=== PATIENT | female | born 1940 | race Caucasian/White ===

== ENCOUNTER 2023-03-01 19:47 | Observation (INO) | payer MEDICARE ==
[2023-03-01] MEDS ORDERED: Senokot S 8.6-50 MG TAB PO PRN (21:36)
[2023-03-01] MEDS ORDERED: Calcium Carbonate 500 MG ChewTAB PO PRN (21:36)
[2023-03-01] MEDS ORDERED: Acetaminophen 325 MG TAB PO PRN (21:36)
[2023-03-01] MEDS ORDERED: Guaifenesin DM 100-10/5 ML UDCUP PO PRN (21:36)
[2023-03-01] MEDS ORDERED: Ondansetron PF 4 MG/2 ML Vial IVP PRN (21:36)
[2023-03-01] MEDS ORDERED: Atorvastatin Calcium 20 MG TAB PO SCH (21:45)
[2023-03-01] MEDS ORDERED: Atorvastatin Calcium 40 MG TAB PO SCH (22:00)
[2023-03-01] MEDS ORDERED: clonazePAM 0.5 MG TAB PO SCH (22:30)
[2023-03-01] MEDS ORDERED: clonazePAM 0.5 MG TAB ONE (22:40)
[2023-03-01] MEDS ORDERED: Atorvastatin Calcium 40 MG TAB ONE (22:42)
[2023-03-01] MEDS: Meclizine HCl 12.5 MG TAB PO SCH (22:50)
[2023-03-01 23:28] VITALS: TEMP 98.5
[2023-03-02 05:02] LABS: Cardiac Risk 2.1 (Less than 4.5); Cholesterol 120 mg/dl (< 200 Desired); HDL Cholesterol 57 mg/dL (>60 Neg Risk); LDL Cholesterol, Calculated 53 mg/dL; Triglycerides 51 mg/dL (Less than 150)
[2023-03-02] MEDS ORDERED: clonazePAM 0.5 MG TAB PO SCH (09:00)
[2023-03-02] MEDS ORDERED: FLUoxetine HCl 20 MG CAP PO SCH (09:00)
[2023-03-02] MEDS ORDERED: Amlodipine 5 MG TAB PO SCH (09:00)
[2023-03-02 09:30] VITALS: BP 108/49
[2023-03-02] MEDS ORDERED: Amlodipine 5 MG TAB ONE (09:44)
[2023-03-02] MEDS ORDERED: clonazePAM 0.5 MG TAB ONE (09:44)
[2023-03-02] MEDS: Meclizine HCl 12.5 MG TAB PO SCH (09:59)
[2023-03-02] MEDS ORDERED: Lidocaine 1% w/Epinephrine 1:200K 30 ML VIAL ONE (15:53)
[2023-03-02] MEDS ORDERED: Atorvastatin Calcium 40 MG TAB PO SCH (21:00)
== END 2023-03-02 17:00 | disposition home or self-care (01) ==
LOC: CSHERS 19:47 → CSHERHOLD 21:00
PROVIDERS: ADMIT Student in an Organized Health Care Education/Training Program; ATTEND Nurse Practitioner Acute Care
DX: R42 Dizziness and giddiness (principal); I10 Essential (primary) hypertension; E78.5 Hyperlipidemia, unspecified; F17.210 Nicotine dependence, cigarettes, uncomplicated; F41.9 Anxiety disorder, unspecified; F32.A Depression, unspecified; Z79.899 Other long term (current) drug therapy; Z91.040 Latex allergy status; Z88.8 Allergy status to other drugs, medicaments and biological substances; Z88.5 Allergy status to narcotic agent; Z88.6 Allergy status to analgesic agent; Z96.653 Presence of artificial knee joint, bilateral; Z90.710 Acquired absence of both cervix and uterus
CPT/HCPCS: 70551; 80061; 83735; 84443; 93005; 96372; 97535; 99285; G0378 ×2; 36415; J1650